=== PATIENT | female | born 1995 | race Asian ===

== ENCOUNTER 2021-06-14 19:13 | Emergency (ER) | payer OTHER ==
[2021-06-14 19:22] VITALS: BP 130/84; PULSE 89; TEMP 98.4; BMI 20.7
[2021-06-14] MEDS ORDERED: ACETAMINOPHEN 500 MG TABLET (FP) PO ONE (19:59)
[2021-06-14] MEDS ORDERED: ACETAMINOPHEN 500 MG TABLET (FP) ONE (20:02)
== END 2021-06-14 20:11 | disposition home or self-care (01) ==
LOC: FER 19:13
DX: J06.9 Acute upper respiratory infection, unspecified (principal)
CPT/HCPCS: 87070; 87804; 99283-25; C9803; U0003; U0005